=== PATIENT | male | born 1990 | race Hispanic/Latino ===

== ENCOUNTER 2019-01-13 09:20 | Emergency (ER) | payer SELFPAY | END 2019-01-13 10:19 | disposition home or self-care (01) | LOC: EDH 09:20 | DX: B82.9 Intestinal parasitism, unspecified (principal); J45.909 Unspecified asthma, uncomplicated ==

== ENCOUNTER 2019-04-19 20:07 | Emergency (ER) | payer OTHER | END 2019-04-19 21:03 | disposition home or self-care (01) | LOC: EDH 20:07 | DX: B82.9 Intestinal parasitism, unspecified (principal); J45.909 Unspecified asthma, uncomplicated ==